=== PATIENT | female | born 1940 | race Caucasian/White ===

== ENCOUNTER 2021-03-01 16:06 | Emergency (ER) | payer MEDICARE ==
--- NOTE | 2021-03-01 18:14 | ED ---
General Adult HPI <Gerson Ulloa - Last Filed: 03/01/21 19:19> <Tito Bain - Last Filed: 03/01/21 23:58> - General Stated complaint: Covid+, confusion/SOB - History of Present Illness Initial comments: 80-year-old female with history of CLL presents emergency Department with a chief complaint of shortness of breath. Patient states she received her second vaccine dose on 02/15/21 and became symptomatic on 02/19/21. Patient reports now she is having exertional dyspnea and a productive cough. She also reports generalized fatigue fevers or chills. Daughter states the patient is also more confused than usual. (Tito Bain) - Related Data Home Medications Medication Instructions Recorded Confirmed Ascorbic Acid [Vitamin C] 1,000 mg PO DAILY 03/01/21 03/01/21 Azithromycin [Zithromax Z-pack (6 See Taper PO DIRECTED 03/01/21 03/01/21 tabs)] Cholecalciferol [Vitamin D3 (25 25 mcg PO DAILY 03/01/21 03/01/21 Mcg = 1000 Iu)] Ferrous Sulfate [Feosol] 325 mg PO DAILY 03/01/21 03/01/21 predniSONE See Taper PO DIRECTED 03/01/21 03/01/21 Allergies Allergy/AdvReac Type Severity Reaction Status Date / Time Fish Containing Products Allergy Rash/Hives Verified 03/01/21 23:16 Iodinated Contrast Media Allergy Rash/Hives Verified 03/01/21 23:16 Sulfa (Sulfonamide Allergy Rash/Hives Verified 03/01/21 23:16 Antibiotics) Review of Systems ROS Other: All systems not noted in ROS Statement are negative. <Gerson Ulloa - Last Filed: 03/01/21 19:19> ROS Other: All systems not noted in ROS Statement are negative. <Tito Bain - Last Filed: 03/01/21 23:58> ROS Statement: Those systems with pertinent positive or pertinent negative responses have been documented in the HPI. Course Vital Signs 03/01/21 03/01/21 03/01/21 18:09 20:32 23:27 Temperature 101.7 F H 99.5 F 97.6 F Pulse Rate 75 73 66 Respiratory 22 16 16 Rate Blood Pressure 107/66 107/55 109/64 O2 Sat by Pulse 96 2 L 97 Oximetry Medical Decision Making - Radiology Data Radiology results: report reviewed (Chest x-ray: Correlate for interstitial pneumonitis with superimposed lower lobe infiltrate) <BouchrabrendabirdieaustinRigoGerson - Last Filed: 03/01/21 19:19> - Lab Data Result diagrams: 03/01/21 19:08 03/01/21 19:08 <Tito Bain - Last Filed: 03/01/21 23:58> - Lab Data Lab Results 03/01/21 03/01/21 03/01/21 Range/Units 19:08 19:08 19:08 WBC 93.2 H* (3.8-10.6) k/uL RBC 3.48 L (3.80-5.40) m/uL Hgb 10.5 L (11.4-16.0) gm/dL Hct 31.8 L (34.0-46.0) % MCV 91.4 (80.0-100.0) fL MCH 30.2 (25.0-35.0) pg MCHC 33.1 (31.0-37.0) g/dL RDW 13.7 (11.5-15.5) % Plt Count 258 (150-450) k/uL MPV 7.4 Neutrophils % (Manual) 7 % Lymphocytes % (Manual) 93 % Monocytes % (Manual) 1 % Neutrophils # (Manual) 6.52 (1.3-7.7) k/uL Lymphocytes # (Manual) 86.68 H (1.0-4.8) k/uL Monocytes # (Manual) 0.93 (0-1.0) k/uL Nucleated RBCs 0 (0-0) /100 WBC Differential Comment Manual Slide Review Performed PT 10.9 (9.0-12.0) sec INR 1.0 (<1.2) APTT 25.4 (22.0-30.0) sec D-Dimer 1.83 H (<0.60) mg/L FEU Sodium 136 L (137-145) mmol/L Potassium 4.8 (3.5-5.1) mmol/L Chloride 99 (98-107) mmol/L Carbon Dioxide 25 (22-30) mmol/L Anion Gap 12 mmol/L BUN 29 H (7-17) mg/dL Creatinine 1.28 H (0.52-1.04) mg/dL Est GFR (CKD-EPI)AfAm 47 (>60 ml/min/1.73 sqM) Est GFR (CKD-EPI)NonAf 40 (>60 ml/min/1.73 sqM) Glucose 148 H (74-99) mg/dL Plasma Lactic Acid Andrew (0.7-2.0) mmol/L Calcium 8.7 (8.4-10.2) mg/dL Total Bilirubin 0.5 (0.2-1.3) mg/dL AST 36 (14-36) U/L ALT 27 (4-34) U/L Alkaline Phosphatase 91 (38-126) U/L Total Protein 6.1 L (6.3-8.2) g/dL Albumin 3.7 (3.5-5.0) g/dL 03/01/21 Range/Units 19:46 WBC (3.8-10.6) k/uL RBC (3.80-5.40) m/uL Hgb (11.4-16.0) gm/dL Hct (34.0-46.0) % MCV (80.0-100.0) fL MCH (25.0-35.0) pg MCHC (31.0-37.0) g/dL RDW (11.5-15.5) % Plt Count (150-450) k/uL MPV Neutrophils % (Manual) % Lymphocytes % (Manual) % Monocytes % (Manual) % Neutrophils # (Manual) (1.3-7.7) k/uL Lymphocytes # (Manual) (1.0-4.8) k/uL Monocytes # (Manual) (0-1.0) k/uL Nucleated RBCs (0-0) /100 WBC Differential Comment Manual Slide Review PT (9.0-12.0) sec INR (<1.2) APTT (22.0-30.0) sec D-Dimer (<0.60) mg/L FEU Sodium (137-145) mmol/L Potassium (3.5-5.1) mmol/L Chloride (98-107) mmol/L Carbon Dioxide (22-30) mmol/L Anion Gap mmol/L BUN (7-17) mg/dL Creatinine (0.52-1.04) mg/dL Est GFR (CKD-EPI)AfAm (>60 ml/min/1.73 sqM) Est GFR (CKD-EPI)NonAf (>60 ml/min/1.73 sqM) Glucose (74-99) mg/dL Plasma Lactic Acid Andrew 1.1 (0.7-2.0) mmol/L Calcium (8.4-10.2) mg/dL Total Bilirubin (0.2-1.3) mg/dL AST (14-36) U/L ALT (4-34) U/L Alkaline Phosphatase (38-126) U/L Total Protein (6.3-8.2) g/dL Albumin (3.5-5.0) g/dL Disposition Is patient prescribed a controlled substance at d/c from ED?: No <Gerson Ulloa - Last Filed: 03/01/21 19:19> Is patient prescribed a controlled substance at d/c from ED?: No Time of Disposition: 23:56 <Tito Bain - Last Filed: 03/01/21 23:58> Clinical Impression: Pneumonia due to COVID-19 virus Disposition: HOME SELF-CARE Condition: Stable Instructions (If sedation given, give patient instructions): Coronavirus Disease 2019 (COVID-19), Fever in Adults (ED) Additional Instructions: Return to the ER immediately should you develop increased shortness of breath, pain, feeling dizzy or faint, or new or worsening symptoms. Follow up closely with your primary care provider. Referrals: Marc Rivera DO [Primary Care Provider] - 1-2 days
--- NOTE | 2021-03-01 18:47 | XR ---
EXAMINATION TYPE: XR chest 1V portable DATE OF EXAM: 03/01/2021 COMPARISON: NONE HISTORY: Shortness of breath TECHNIQUE: Single frontal view of the chest is obtained. FINDINGS: There is a bilateral lower lobe infiltrate and diffuse interstitial pattern. Arthropathy o f the shoulders. No pneumothorax. Heart size normal. Pleural thickening or tiny effusions noted. IMPRESSION: 1. Correlate for interstitial pneumonitis with superimposed lower lobe infiltrate.
[2021-03-01 19:31] LABS: Albumin 3.7 g/dL (3.5-5.0); Calcium 8.7 mg/dL (8.4-10.2); Potassium 4.8 mmol/L (3.5-5.1); Total Bilirubin 0.5 mg/dL (0.2-1.3); Total Protein 6.1 g/dL (6.3-8.2)
--- NOTE | 2021-03-01 19:33 | ED ---
General Adult HPI - General Chief complaint: Shortness of Breath Stated complaint: Covid+, confusion/SOB Time Seen by Provider: 03/01/21 19:07 Source: patient, family Mode of arrival: wheelchair Limitations: no limitations - History of Present Illness Initial comments: Patient presents to the ED stating that she was diagnosed with Covid 9 days ago, and she has had symptoms of cough, dyspnea, weakness and intermittent fever for the past 10 days. Patient states that she received her second dose of the Moderna Covid vaccine 12 days ago. She states that her symptoms seem to be getting worse, and she has become more short of breath, so she has come to the ED today. Patient denies having any pain, headache, focal neuro deficit, chest pain, hemoptysis, palpitations, syncope, abdominal pain, nausea/vomiting/diarrhea, dysuria or urinary symptoms, decreased urine output, leg or calf swelling or pain, or any other symptoms or complaints. Patient st ates that she has CLL, and her WBC count is normally in the 100s. - Related Data Home Medications Medication Instructions Recorded Confirmed Ascorbic Acid [Vitamin C] 1,000 mg PO DAILY 03/01/21 03/01/21 Azithromycin [Zithromax Z-pack (6 See Taper PO DIRECTED 03/01/21 03/01/21 tabs)] Cholecalciferol [Vitamin D3 (25 25 mcg PO DAILY 03/01/21 03/01/21 Mcg = 1000 Iu)] Ferrous Sulfate [Feosol] 325 mg PO DAILY 03/01/21 03/01/21 predniSONE See Taper PO DIRECTED 03/01/21 03/01/21 Allergies Allergy/AdvReac Type Severity Reaction Status Date / Time Fish Containing Products Allergy Rash/Hives Verified 03/01/21 23:16 Iodinated Contrast Media Allergy Rash/Hives Verified 03/01/21 23:16 Sulfa (Sulfonamide Allergy Rash/Hives Verified 03/01/21 23:16 Antibiotics) Review of Systems ROS Statement: Those systems with pertinent positive or pertinent negative responses have been documented in the HPI. ROS Other: All systems not noted in ROS Statement are negative. Past Medical History Past Medical History: Cancer Additional Past Medical History / Comment(s): CLL ,anemia. coivd 02/21/21 History of Any Multi-Drug Resistant Organisms: None Reported Past Surgical History: Joint Replacement Additional Past Surgical History / Comment(s): fab knee, Past Psychological History: No Psychological Hx Reported Smoking Status: Never smoker Past Alcohol Use History: None Reported Past Drug Use History: None Reported General Exam Limitations: no limitations General appearance: alert, in no apparent distress Head exam: Present: atraumatic, normocephalic Eye exam: Present: normal appearance, EOMI ENT exam: Present: mucous membranes moist Neck exam: Present: other (Trachea is in midline) Respiratory exam: Present: normal lung sounds bilaterally. Absent: respiratory distress, wheezes, rales, rhonchi, stridor Cardiovascular Exam: Present: regular rate, normal rhythm, normal heart sounds, other (Normal radial pulses bilaterally) GI/Abdominal exam: Present: soft. Absent: distended, tenderness, guarding Extremities exam: Present: other (Negative Homans sign bilaterally). Absent: tenderness, pedal edema, calf tenderness Neurological exam: Present: alert, oriented X3. Absent: motor sensory deficit Psychiatric exam: Present: normal affect, normal mood Skin exam: Present: warm, dry, intact, normal color Course Vital Signs 03/01/21 03/01/21 18:09 20:32 Temperature 101.7 F H 99.5 F Pulse Rate 75 73 Respiratory 22 16 Rate Blood Pressure 107/66 107/55 O2 Sat by Pulse 96 2 L Oximetry - Reevaluation(s) Reevaluation #1: 03/01/21 20:07 Patient has "iodinated contrast media" listed as an ALLERGY. When asked about this, she states that she has only had an ALLERGIC reaction with oral contrast dye, and she states that she has had IV contrast dye without any reaction in the past. Given that the patient's d-dimer is elevated and she is complaining of having dyspnea, will obtain a CT angiography chest at this time to rule out pulmonary embolism. 03/01/21 22:40 Patient meets inclusion criteria for monoclonal antibody treatment for Covid. Risks and benefits were discussed with the patient, and she wishes to proceed with treatment at this time. 03/01/21 23:23 Patient remains alert and breathing comfortably in normal room air oxygen saturation. Patient's fever has now improved. Patient denies development of any new symptoms while in the ED. Patient is aware of her test results, and she is comfortable being discharged home after her monoclonal antibody infusion treatment is completed. Patient's granddaughter is an ED nurse who is currently on shift, and she states that she will take the patient home herself. Patient was counseled about Covid pneumonia, and she was clearly explained return and follow-up instructions. Patient was instructed to follow up closely with her primary care provider. Patient was also instructed to have a low threshold for return to the ED should her symptoms worsen. Patient feels comfortable with this plan. EKG Findings - EKG Comments: EKG Findings:: Sinus rhythm with a single premature supraventricular and single PVC, ventricular rate of 82 bpm, normal [place] and QRS intervals, normal QT interval, normal axis, nonspecific ST abnormality Medical Decision Making - Medical Decision Making I suspect that the patient's symptoms are all secondary to Covid pneumonia. Patient has CLL, which explains her very elevated WBC count. Patient is breathing comfortably with a normal room air oxygen saturation in the ED. Patient meets inclusion criteria for monoclonal antibody treatment for Covid, and she has received infusion in the ED today. Will discharge patient home at this time with clear return and follow-up instructions given. - Lab Data Result diagrams: 03/01/21 19:08 03/01/21 19:08 Lab Results 03/01/21 03/01/21 03/01/21 Range/Units 19:08 19:08 19:08 WBC 93.2 H* (3.8-10.6) k/uL RBC 3.48 L (3.80-5.40) m/uL Hgb 10.5 L (11.4-16.0) gm/dL Hct 31.8 L (34.0-46.0) % MCV 91.4 (80.0-100.0) fL MCH 30.2 (25.0-35.0) pg MCHC 33.1 (31.0-37.0) g/dL RDW 13.7 (11.5-15.5) % Plt Count 258 (150-450) k/uL MPV 7.4 Neutrophils % (Manual) 7 % Lymphocytes % (Manual) 93 % Monocytes % (Manual) 1 % Neutrophils # (Manual) 6.52 (1.3-7.7) k/uL Lymphocytes # (Manual) 86.68 H (1.0-4.8) k/uL Monocytes # (Manual) 0.93 (0-1.0) k/uL Nucleated RBCs 0 (0-0) /100 WBC Differential Comment Manual Slide Review Performed PT 10.9 (9.0-12.0) sec INR 1.0 (<1.2) APTT 25.4 (22.0-30.0) sec D-Dimer 1.83 H (<0.60) mg/L FEU Sodium 136 L (137-145) mmol/L Potassium 4.8 (3.5-5.1) mmol/L Chloride 99 (98-107) mmol/L Carbon Dioxide 25 (22-30) mmol/L Anion Gap 12 mmol/L BUN 29 H (7-17) mg/dL Creatinine 1.28 H (0.52-1.04) mg/dL Est GFR (CKD-EPI)AfAm 47 (>60 ml/min/1.73 sqM) Est GFR (CKD-EPI)NonAf 40 (>60 ml/min/1.73 sqM) Glucose 148 H (74-99) mg/dL Plasma Lactic Acid Andrew (0.7-2.0) mmol/L Calcium 8.7 (8.4-10.2) mg/dL Total Bilirubin 0.5 (0.2-1.3) mg/dL AST 36 (14-36) U/L ALT 27 (4-34) U/L Alkaline Phosphatase 91 (38-126) U/L Total Protein 6.1 L (6.3-8.2) g/dL Albumin 3.7 (3.5-5.0) g/dL /05/16 Range/Units 19:46 WBC (3.8-10.6) k/uL RBC (3.80-5.40) m/uL Hgb (11.4-16.0) gm/dL Hct (34.0-46.0) % MCV (80.0-100.0) fL MCH (25.0-35.0) pg MCHC (31.0-37.0) g/dL RDW (11.5-15.5) % Plt Count (150-450) k/uL MPV Neutrophils % (Manual) % Lymphocytes % (Manual) % Monocytes % (Manual) % Neutrophils # (Manual) (1.3-7.7) k/uL Lymphocytes # (Manual) (1.0-4.8) k/uL Monocytes # (Manual) (0-1.0) k/uL Nucleated RBCs (0-0) /100 WBC Differential Comment Manual Slide Review PT (9.0-12.0) sec INR (<1.2) APTT (22.0-30.0) sec D-Dimer (<0.60) mg/L FEU Sodium (137-145) mmol/L Potassium (3.5-5.1) mmol/L Chloride (98-107) mmol/L Carbon Dioxide (22-30) mmol/L Anion Gap mmol/L BUN (7-17) mg/dL Creatinine (0.52-1.04) mg/dL Est GFR (CKD-EPI)AfAm (>60 ml/min/1.73 sqM) Est GFR (CKD-EPI)NonAf (>60 ml/min/1.73 sqM) Glucose (74-99) mg/dL Plasma Lactic Acid Andrew 1.1 (0.7-2.0) mmol/L Calcium (8.4-10.2) mg/dL Total Bilirubin (0.2-1.3) mg/dL AST (14-36) U/L ALT (4-34) U/L Alkaline Phosphatase (38-126) U/L Total Protein (6.3-8.2) g/dL Albumin (3.5-5.0) g/dL - Radiology Data Radiology results: report reviewed (Chest x-ray: Correlate for interstitial pneumonitis with superimposed lower lobe infiltrate: CT angiography chest: Bilateral pulmonary infiltrates consistent with pneumonia, although atelectasis at lung bases, no evidence of pulmonary embolism, cardiomegaly) Disposition Clinical Impression: Pneumonia due to COVID-19 virus Disposition: HOME SELF-CARE Condition: Stable Instructions (If sedation given, give patient instructions): Fever in Adults (ED), Coronavirus Disease 2019 (COVID-19) Additional Instructions: Return to the ER immediately should you develop increased shortness of breath, pain, feeling dizzy or faint, or new or worsening symptoms. Follow up closely with your primary care provider. Is patient prescribed a controlled substance at d/c from ED?: No Referrals: Marc Rivera DO [Primary Care Provider] - 1-2 days Time of Disposition: 23:27
[2021-03-01] MEDS ORDERED: SODIUM CHLORIDE 0.9% 500 ML 500 ML IV ONE ×2 (19:35→20:38)
[2021-03-01] MEDS ORDERED: ACETAMINOPHEN TAB 500 MG TAB PO STA (19:35)
[2021-03-01 19:39] LABS: Partial Thromboplastin Time 25.4 sec (22.0-30.0); Prothrombin Time 10.9 sec (9.0-12.0)
[2021-03-01 19:43] LABS: D-Dimer 1.83 mg/L FEU (<0.60)
[2021-03-01 20:05] LABS: HCT 31.8 % (34.0-46.0); HGB 10.5 gm/dL (11.4-16.0); MCH 30.2 pg (25.0-35.0); MCHC 33.1 g/dL (31.0-37.0); MCV 91.4 fL (80.0-100.0); Mean Platelet Volume 7.4; Platelet Count 258 k/uL (150-450); RBC 3.48 m/uL (3.80-5.40); RDW 13.7 % (11.5-15.5)
[2021-03-01 20:09] LABS: WBC 93.2 k/uL (3.8-10.6)
[2021-03-01] MEDS ORDERED: diphenhydrAMINE 50 MG/ML 1 ML VIAL IVP STA (20:15)
[2021-03-01] MEDS ORDERED: methylPREDNISolone SOD SUCCI 125 MG/2 ML VIAL IV STA (20:22)
[2021-03-01 20:35] VITALS: RESP 16
[2021-03-01 20:54] LABS: Lymphocytes # (M) 86.68 k/uL (1.0-4.8); Monocytes # (M) 0.93 k/uL (0-1.0); Neutrophils # (M) 6.52 k/uL (1.3-7.7); Neutrophils % (M) 7 %; Nucleated Red Blood Cells 0 /100 WBC (0-0); Total Cells Counted 200
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
[2021-03-01] MEDS ORDERED: BAMLANIVIMAB (EUA) 700 MG, ETESEVIMAB (EUA) 1,400 MG in SODIUM CHLORIDE 0.9% 50 ML IVPB ONE (23:00)
[2021-03-01] MEDS ORDERED: SODIUM CHLORIDE 0.9% 50 ML IVPB ONE (23:00)
[2021-03-01 23:28] VITALS: BP 109/64; PULSE 66; TEMP 97.6
[2021-03-02 13:28] LABS: Magnesium 2.4 mg/dL (1.6-2.3)
[2021-03-02 13:44] LABS: C Reactive Protein 162.7 mg/L (<10.0)
[2021-03-03 08:35] LABS: Ferritin 3022.7 ng/mL (10.0-291.0)
== END 2021-03-02 00:20 | disposition home or self-care (01) ==
LOC: EC 16:06
DX: U07.1 COVID-19 (principal); J12.82 Pneumonia due to coronavirus disease 2019
CPT/HCPCS: 99285; 96365; 96375; 36415; 93005; 85379; 80053; 82728; 83605; 83615; 83735; 85025; 85610; 85730; 86140; 87040; 84145; 71045; 71275; J1200; J2930; Q9967; Q0245

== ENCOUNTER 2024-05-19 10:47 | Emergency (ER) | payer MEDICARE ==
[2024-05-19 12:31] LABS: HCT 35.8 % (34.0-46.0); Hypochromasia Moderate; MCHC 30.8 g/dL (31.0-37.0); MCV 97.4 fL (80.0-100.0); Mean Platelet Volume 7.4; Platelet Count 151 k/uL (150-450); RBC 3.68 m/uL (3.80-5.40); RDW 15.5 % (11.5-15.5)
[2024-05-19 12:39] LABS: Appearance,Urine Cloudy (Clear); Bilirubin,Urine Negative (Negative); Blood,Urine Large (Negative); Budding Yeast,Urine Few /hpf; Color,Urine Yellow; Glucose,Urine (UA) Negative (Negative); Hyaline Casts,Urine 5 /lpf (0-2); Ketones,Urine Negative (Negative); Leukocyte Esterase,Urine Trace (Negative); Mucus,Urine Rare /hpf; Nitrite,Urine Negative (Negative); PH, Urine 5.5 (5.0-8.0); Protein,Urine 1+ (Negative); RBC,Urine 37 /hpf (0-5); Red Blood Cell Casts,Urine 5 /lpf (0); Squamous Epithelial Cell,Urine 5 /hpf (0-4); Urobilinogen,Urine <2.0 mg/dL (<2.0); WBC,Urine 10 /hpf (0-5)
[2024-05-19] MEDS: SODIUM CHLORIDE 0.9% 1,000 ML IV STA (12:49)
--- NOTE | 2024-05-19 12:57 | ED ---
General Adult HPI - General Chief complaint: Weakness Stated complaint: Shingles + Time Seen by Provider: 05/19/24 11:38 Source: patient, RN notes reviewed, old records reviewed Mode of arrival: ambulatory Limitations: no limitations - History of Present Illness Initial comments: 83-year-old female with CLL and recent diagnosis of shingles presents with increased weakness and fatigue over the past 3 days. Patient was diagnosed with shingles 3 days prior and was started on antiviral. She denies chest pain denies abdominal pain. Denies dyspnea. Denies urinary symptoms. No vomiting. Patient has had poor appetite and generalized weakness over this time. - Related Data Home Medications Medication Instructions Recorded Confirmed Ascorbic Acid [Vitamin C] 1,000 mg PO DAILY 03/01/21 03/01/21 Azithromycin [Zithromax Z-pack (6 See Taper PO DIRECTED 03/01/21 03/01/21 tabs)] Cholecalciferol [Vitamin D3 (25 25 mcg PO DAILY 03/01/21 03/01/21 Mcg = 1000 Iu)] Ferrous Sulfate [Feosol] 325 mg PO DAILY 03/01/21 03/01/21 predniSONE See Taper PO DIRECTED 03/01/21 03/01/21 Allergies Allergy/AdvReac Type Severity Reaction Status Date / Time Fish Containing Products Allergy Rash/Hives Verified 05/19/24 11:06 Iodinated Contrast Media Allergy Rash/Hives Verified 05/19/24 11:06 Sulfa (Sulfonamide Allergy Rash/Hives Verified 05/19/24 11:06 Antibiotics) Review of Systems ROS Statement: Those systems with pertinent positive or pertinent negative responses have been documented in the HPI. ROS Other: All systems not noted in ROS Statement are negative. Past Medical History Past Medical History: Cancer Additional Past Medical History / Comment(s): CLL ,anemia. coivd 02/21/21 History of Any Multi-Drug Resistant Organisms: None Reported Past Surgical History: Joint Replacement Additional Past Surgical History / Comment(s): fab knee, Past Psychological History: No Psychological Hx Reported Smoking Status: Never smoker Past Alcohol Use History: None Reported Past Drug Use History: None Reported General Exam Limitations: no limitations General appearance: alert, in no apparent distress Head exam: Present: atraumatic, normocephalic Eye exam: Present: normal appearance, PERRL ENT exam: Present: mucous membranes dry Neck exam: Present: normal inspection. Absent: tenderness, meningismus Respiratory exam: Present: normal lung sounds bilaterally, other (rt thoracic vesicular rash). Absent: respiratory distress, wheezes Cardiovascular Exam: Present: regular rate, normal rhythm GI/Abdominal exam: Present: soft. Absent: distended, tenderness Extremities exam: Present: normal inspection, normal capillary refill. Absent: pedal edema, calf tenderness Neurological exam: Present: alert, oriented X3, CN II-XII intact. Absent: motor sensory deficit Psychiatric exam: Present: normal affect, normal mood Skin exam: Present: warm, dry, rash. Absent: cyanosis, diaphoretic Course Vital Signs 05/19/24 05/19/24 05/19/24 11:03 12:46 13:29 Temperature 98.4 F 98.1 F Pulse Rate 82 74 75 Respiratory 20 16 18 Rate Blood Pressure 116/74 100/56 106/50 O2 Sat by Pulse 97 92 L 95 Oximetry Medical Decision Making - Medical Decision Making Was pt. sent in by a medical professional or institution (, PA, ABORIGINAL EDUCATION TEACHER, urgent care, hospital, or group home...) When possible be specific @ -No Did you speak to anyone other than the patient for history (EMS, parent, family, police, friend...)? What history was obtained from this source @ -Patient's daughter Did you review nursing and triage notes (agree or disagree)? Why? @ -I reviewed and agree with nursing and triage notes Were old charts reviewed (outside hosp., previous admission, EMS record, old EKG, old radiological studies, urgent care reports/EKG's, group home records)? Report findings @ -No old charts were reviewed Differential Weakness: Hypoglycemia, shock, sepsis, hyponatremia, anemia, infection, GA, ETOH, adverse medicine reaction, overdose, stroke, this is not meant to be an all-inclusive list. EKG interpreted by me (3pts min.). @Sinus rhythm rate of 83, PA interval 132, QRS duration 94, QTc [address] segment elevation. X-rays interpreted by me (1pt min.). @ -None done CT interpreted by me (1pt min.). @ -None done U/S interpreted by me (1pt. min.). @ -None done What testing was considered but not performed or refused? (CT, X-rays, U/S, labs)? Why? @ -None What meds were considered but not given or refused? Why? @ -None Did you discuss the management of the patient with other professionals (professionals i.e. , PA, ABORIGINAL EDUCATION TEACHER, lab, RT, psych nurse, rn social work, criminal lawyer, teacher, chief wellness officer, director of casework department)? Give summary @ -No Was smoking cessation discussed for >3mins.? @ -No Was critical care preformed (if so, how long)? @ -No Were there social determinants of health that impacted care today? How? (Homelessness, low income, unemployed, alcoholism, drug addiction, transportation, low edu. Level, literacy, decrease access to med. care, halfway, rehab)? @ -No Was there de-escalation of care discussed even if they declined (Discuss DNR or withdrawal of care, Hospice)? DNR status @ -No What co-morbidities impacted this encounter? (DM, HTN, Smoking, COPD, CAD, Cancer, CVA, ARF, Chemo, Hep., AIDS, mental health diagnosis, sleep apnea, morbid obesity)? @ CLL Was patient admitted / discharged? Hospital course, mention meds given and route, prescriptions, significant lab abnormalities, going to OR and other pertinent info. @ 83-year-old female with weakness, poor appetite, recent diagnosis of shingles. Patient well-appearing with stable vitals. She has a herpetic rash on the right chest wall consistent with shingles. She has history of CLL, her white blood cell count is 105 which is normal for this patient. She has stable and improved hemoglobin at 11 compared to prior. Recent was 9.7. Normal platelets. Patient has normal electrolytes, stable kidney function. I did give the patient fluid. We discussed observation for hydration versus home with return parameters and oral rehydration. The patient prefers to go home. She will attempt to eat and drink more and return as needed. Undiagnosed new problem with uncertain prognosis? @ -No Drug Therapy requiring intensive monitoring for toxicity (Heparin, Nitro, Insulin, Cardizem)? @ -No Were any procedures done? @ -No Diagnosis/symptom? @ -Shingles dehydration Acute, or Chronic, or Acute on Chronic? @ acute Uncomplicated (without systemic symptoms) or Complicated (systemic symptoms)? @ -Default Side effects of treatment? @ -No Exacerbation, Progression, or Severe Exacerbation? @ -No Poses a threat to life or bodily function? How? (Chest pain, USA, GA, pneumonia, PE, COPD, DKA, ARF, appy, cholecystitis, CVA, Diverticulitis, Homicidal, Suicidal, threat to staff... and all critical care pts) @ -No - Lab Data Result diagrams: 05/19/24 12:19 05/19/24 12:19 Lab Results 05/19/24 05/19/24 05/19/24 Range/Units 12:19 12:19 12:19 WBC 104.2 H* (3.8-10.6) k/uL RBC 3.68 L (3.80-5.40) m/uL Hgb 11.0 L (11.4-16.0) gm/dL Hct 35.8 (34.0-46.0) % MCV 97.4 (80.0-100.0) fL MCH 30.0 (25.0-35.0) pg MCHC 30.8 L (31.0-37.0) g/dL RDW 15.5 (11.5-15.5) % Plt Count 151 (150-450) k/uL MPV 7.4 Neutrophils % (Manual) 6 % Lymphocytes % (Manual) 94 % Monocytes % (Manual) 1 % Neutrophils # (Manual) 6.25 (1.3-7.7) k/uL Lymphocytes # (Manual) 97.95 H (1.0-4.8) k/uL Monocytes # (Manual) 1.04 H (0-1.0) k/uL Nucleated RBCs 0 (0-0) /100 WBC Manual Slide Review Performed Hypochromasia Moderate PT 11.3 (10.0-12.5) sec INR 1.0 (<1.2) APTT 20.5 L (22.0-30.0) sec Sodium 135 L (137-145) mmol/L Potassium 4.3 (3.5-5.1) mmol/L Chloride 102 (98-107) mmol/L Carbon Dioxide 24 (22-30) mmol/L Anion Gap 9 mmol/L BUN 35 H (7-17) mg/dL Creatinine 1.37 H (0.52-1.04) mg/dL Est GFR (CKD-EPI)AfAm 42 (>60 ml/min/1.73 sqM) Est GFR (CKD-EPI)NonAf 36 (>60 ml/min/1.73 sqM) Glucose 117 H (74-99) mg/dL Plasma Lactic Acid Andrew (0.7-2.0) mmol/L Calcium 8.7 (8.4-10.2) mg/dL Magnesium 2.4 H (1.6-2.3) mg/dL Total Bilirubin 0.8 (0.2-1.3) mg/dL AST 25 (14-36) U/L ALT 10 (4-34) U/L Alkaline Phosphatase 97 (38-126) U/L Troponin I (0.000-0.034) ng/mL Total Protein 6.0 L (6.3-8.2) g/dL Albumin 3.5 (3.5-5.0) g/dL Urine Color Urine Appearance (Clear) Urine pH (5.0-8.0) Ur Specific Murdock (1.001-1.035) Urine Protein (Negative) Urine Glucose (UA) (Negative) Urine Ketones (Negative) Urine Blood (Negative) Urine Nitrite (Negative) Urine Bilirubin (Negative) Urine Urobilinogen (<2.0) mg/dL Ur Leukocyte Esterase (Negative) Urine RBC (0-5) /hpf Urine WBC (0-5) /hpf Ur Squamous Epith Cells (0-4) /hpf Hyaline Casts (0-2) /lpf RBC Casts (0) /lpf Urine Mucus (None) /hpf Urine Yeast (Budding) (None) /hpf 05/19/24 05/19/24 05/19/24 Range/Units 12:19 12:19 12:19 WBC (3.8-10.6) k/uL RBC (3.80-5.40) m/uL Hgb (11.4-16.0) gm/dL Hct (34.0-46.0) % MCV (80.0-100.0) fL MCH (25.0-35.0) pg MCHC (31.0-37.0) g/dL RDW (11.5-15.5) % Plt Count (150-450) k/uL MPV Neutrophils % (Manual) % Lymphocytes % (Manual) % Monocytes % (Manual) % Neutrophils # (Manual) (1.3-7.7) k/uL Lymphocytes # (Manual) (1.0-4.8) k/uL Monocytes # (Manual) (0-1.0) k/uL Nucleated RBCs (0-0) /100 WBC Manual Slide Review Hypochromasia PT (10.0-12.5) sec INR (<1.2) APTT (22.0-30.0) sec Sodium (137-145) mmol/L Potassium (3.5-5.1) mmol/L Chloride (98-107) mmol/L Carbon Dioxide (22-30) mmol/L Anion Gap mmol/L BUN (7-17) mg/dL Creatinine (0.52-1.04) mg/dL Est GFR (CKD-EPI)AfAm (>60 ml/min/1.73 sqM) Est GFR (CKD-EPI)NonAf (>60 ml/min/1.73 sqM) Glucose (74-99) mg/dL Plasma Lactic Acid Andrew 1.1 (0.7-2.0) mmol/L Calcium (8.4-10.2) mg/dL Magnesium (1.6-2.3) mg/dL Total Bilirubin (0.2-1.3) mg/dL AST (14-36) U/L ALT (4-34) U/L Alkaline Phosphatase (38-126) U/L Troponin I <0.012 (0.000-0.034) ng/mL Total Protein (6.3-8.2) g/dL Albumin (3.5-5.0) g/dL Urine Color Yellow Urine Appearance Cloudy H (Clear) Urine pH 5.5 (5.0-8.0) Ur Specific Murdock 1.020 (1.001-1.035) Urine Protein 1+ H (Negative) Urine Glucose (UA) Negative (Negative) Urine Ketones Negative (Negative) Urine Blood Large H (Negative) Urine Nitrite Negative (Negative) Urine Bilirubin Negative (Negative) Urine Urobilinogen <2.0 (<2.0) mg/dL Ur Leukocyte Esterase Trace H (Negative) Urine RBC 37 H (0-5) /hpf Urine WBC 10 H (0-5) /hpf Ur Squamous Epith Cells 5 H (0-4) /hpf Hyaline Casts 5 H (0-2) /lpf RBC Casts 5 (0) /lpf Urine Mucus Rare H (None) /hpf Urine Yeast (Budding) Few H (None) /hpf Disposition Clinical Impression: Dehydration, Shingles Disposition: HOME SELF-CARE Condition: Fair Instructions (If sedation given, give patient instructions): Dehydration (ED), Shingles (ED) Is patient prescribed a controlled substance at d/c from ED?: No Referrals: Marc Rivera DO [Primary Care Provider] - 1-2 days Time of Disposition: 13:51
[2024-05-19 13:10] LABS: ALT 10 U/L (4-34); African American GFR (CKD) 42 (>60 ml/min/1.73 sqM); Albumin 3.5 g/dL (3.5-5.0); Anion Gap 9 mmol/L; Blood Urea Nitrogen 35 mg/dL (7-17); Calcium 8.7 mg/dL (8.4-10.2); Carbon Dioxide 24 mmol/L (22-30); Chloride 102 mmol/L (98-107); Glucose 117 mg/dL (74-99); Non-African American GFR(CKD) 36 (>60 ml/min/1.73 sqM); Partial Thromboplastin Time 20.5 sec (22.0-30.0); Prothrombin Time 11.3 sec (10.0-12.5); Sodium 135 mmol/L (137-145); Total Bilirubin 0.8 mg/dL (0.2-1.3)
[2024-05-19 13:17] LABS: AST 25 U/L (14-36); Alkaline Phosphatase 97 U/L (38-126); Magnesium 2.4 mg/dL (1.6-2.3); Potassium 4.3 mmol/L (3.5-5.1)
[2024-05-19 13:31] LABS: Monocytes # (M) 1.04 k/uL (0-1.0); Neutrophils # (M) 6.25 k/uL (1.3-7.7); Neutrophils % (M) 6 %; Nucleated Red Blood Cells 0 /100 WBC (0-0); Total Cells Counted 200
--- NOTE | 2024-05-19 13:31 | XR ---
EXAMINATION TYPE: XR chest 2V DATE OF EXAM: 05/19/2024 COMPARISON: 03/01/2021 HISTORY: Shortness of breath TECHNIQUE: Frontal and lateral views of the chest are obtained. FINDINGS: Scattered senescent parenchymal changes noted. Hyperinflation compatible with COPD. No evidence for infiltrate. No evidence for atelectasis. Heart size is stable. Mediastinal structures are stable and grossly unremarkable. No evidence for hilar prominence. Degenerative changes dorsal spine. IMPRESSION: 1. No evidence for acute pulmonary disease.
[2024-05-19 13:36] LABS: Lymphocytes # (M) 97.95 k/uL (1.0-4.8); WBC 104.2 k/uL (3.8-10.6)
[2024-05-19 14:22] VITALS: BP 105/52; PULSE 78; RESP 16; TEMP 97.5
== END 2024-05-19 14:35 | disposition home or self-care (01) ==
LOC: EC 10:47
DX: E86.0 Dehydration (principal); B02.9 Zoster without complications; Z91.041 Radiographic dye allergy status; Z88.2 Allergy status to sulfonamides; Z88.1 Allergy status to other antibiotic agents; Z88.8 Allergy status to other drugs, medicaments and biological substances; Z91.013 Allergy to seafood
CPT/HCPCS: 36415; 71046; 80053; 81001; 83605; 83735; 84484; 85025; 85610; 85730; 93005; 96360; 99285